=== PATIENT | female | born 1970 | race Caucasian/White ===

== ENCOUNTER 2016-10-26 05:46 | Day surgery (SDC) | payer MEDICAID, OTHER ==
[2016-10-26] VITALS (9 sets, daily range): BP systolic 104–129; BP diastolic 50–68; PULSE 75–88; RESP 11–16; O2SAT 93–98
[~2016-10-26] VITALS: Ht 165.1 cm; Wt 87.6 kg
[~2016-10-26 05:46] MED LIST: ONDA8TAB7 PO; PANT40TA3 PO; SERT100T PO; TRAZ-118 PO
[2016-10-26] MEDS ORDERED: fentaNYL-PF 50 mCg/mL 2 mL Inj ONE (05:47)
[2016-10-26] MEDS ORDERED: Ondansetron 2 mg/mL 2 mL Inj ONE (05:47)
[2016-10-26] MEDS ORDERED: Propofol 10,000 mCg/mL 20 mL Inj ONE (05:47)
[2016-10-26] MEDS ORDERED: MetoCLOpramide 5 mg/mL 2 mL Inj ONE (05:47)
[2016-10-26] MEDS ORDERED: Dexamethasone 4 mg/mL Inj ONE (05:47)
[2016-10-26] MEDS: Lactated Ringer's 1,000 ML IV SCH ×2 (05:56→07:19)
[2016-10-26] MEDS ORDERED: METF500T4 PO (05:58)
[2016-10-26] MEDS ORDERED: AMIT100T2 PO (05:58)
[2016-10-26] MEDS ORDERED: PREG75CA PO (05:58)
[2016-10-26] MEDS ORDERED: CeFAZolin Inj 2 GM in IV Premix 1 EACH IV ONE (06:00)
[2016-10-26] MEDS ORDERED: Lactated Ringer's 500 ML IV PRN (07:14)
[2016-10-26] MEDS ORDERED: Lactated Ringer's 1,000 ML IV SCH (07:14)
--- NOTE | 2016-10-26 07:14 | PCM.HPANE ---
Patient Data Surgeon Admitting Provider: Attending Provider:John Sims MD Primary Care Physician:Casey Mello MD Other Provider:[facility] Reason for Visit Ventral Incisional Hernia Ht/WT & BMI Height (Feet): 5 Height (Inches): 5 Weight (Kilograms): 87.6 Body Mass Index 32.00 Allergies Coded Allergies: hydrocodone (Verified Allergy, Unknown, hives, 10/25/16) Past Anesthesia History Anesthesia History: Denies:: Anesthesia Reactions Diabetes History Hx Diabetes?: Yes Type of Diabetes: Type II Glycemic Control: Diet Controlled Current Bedside Blood Glucose: 131 MRSA MRSA: No Medications Hypertension Medication: No Home Meds Incl Beta Cristy: No Reported Medications Amitriptyline 100 Mg [id number] Mg PO HS Ref 0 10/26/16 Metformin 500 Mg Vozofx707 Mg PO BID Ref 0 10/26/16 Pregabalin (Lyrica)75 Mg Oqjcryp49 Mg PO DAILY 30 Days Ref 0 10/26/16 Sertraline HCl (Zoloft)100 Mg Ztnsfu085 Mg PO DAILY 30 Days Ref 0 10/24/16 Discontinued Reported Medications Ondansetron ODT (Zofran ODT)8 Mg Tablet8 Mg PO Q4H PRN For Nausea 10/24/16 Trazodone 100 Mg Ucidon997 Mg PO HS Ref 0 10/24/[address] 40 Mg Tablet.dr40 Mg PO DAILY Ref 0 10/24/16 History Hx of Heart Problems?: No Cardiovascular History: Positive for:: Coronary Artery Disease (ELEVATED CHOLESTEROL) Denies:: Hypertension Hx of Respiratory Problem?: Yes Respiratory History: Positive for:: COPD Cough Denies:: Oxygen Administration Use of C-PAP Machine Hx Neurologic Problems?: Yes Neurological History: Positive for:: Headaches Other Neurological Pertinent: NEUROPATHY Gastrointestinal History: Positive for:: Gall Bladder Disease (rremoved) Gastroesphageal Reflux Heartburn Other GI Pertinent History: ventral hernia current admission problem Hx of Problems?: No Female Hx: Denies:: Currently Skin History: Positive for:: History Skin Disorders? (ECZEMA) Hx Musculoskeletal Problems?: Yes Musculoskeletal History: Positive for:: Fibromyalgia Hx of Psycho/Social Problems?: Yes Psycho Social History: Positive for:: Hx Depression Hx Surgeries?: Yes (lap colleen) Hx Any Other Health Problems?: Yes Other History: Denies:: Cancer Thyroid Disease Hx Diabetes: YesBedside Blood Glucose: 131 Hx Alcohol Use: NoHx Substance Use: No Smoking Status: Current Every Day Smoker Stop/Bang Treated for Sleep Apnea?: No Do You Have a CPAP Machine?: No S-Snoring: Do You Snore Loudly: Yes T-Tired: feel tired, fatigued: Yes O-Obsered: Observed not breath: No P-Blood Pressure: treated: No B- Body Mass Index > 35 kg/m2: No A- Age over 50: No N- Neck Large Circumference: No G- Gender Male: No RUTHANN Total Score: 2 RUTHANN Risk Assessment: Low Risk, <3 Yes Risk Assessment Category Category 1A: Patient has history of documented sleep apnea, and HAS NOT received any narcotic, sedative or anesthesia administration during this stay. Category 1B: Patient has history of documented sleep apnea, and HAS received any narcotic , sedative or anesthesia administration during this stay Category 2: Patient has SUSPECTED Obstructive Sleep Apnea, and HAS received any narcotic , sedative or anesthesia administration during this stay. Category 3: Patient has SUSPECTED Obstructive Sleep Apnea and HAS NOT received narcotic, sedative or anesthesia administration during this stay. Category 4: Outpatient in Procedural Areas with known sleep apnea or who screen positive for High Risk via the STOP/BANG questionnaire. Exam Exam Vital Signs Vital Signs Date Time Temp Pulse Resp B/P Pulse Ox O2 Delivery O2 Flow Rate FiO2 10/26/16 06:05 35.8 75 16 129/68 96 Room Air General Appearance: Oriented X3 HEENT/AIRWAY: MP 2 Lungs: Normal Air Movement Heart: Regular Rate/Rhythm Meds/Labs/Diagnostics Admission Meds Current Medications Lactated Ringer's (Lr) 1,000 ml @ 120 mls/hr Q8H20M IV Last administered on t 05:56; Start 10/26/16 at 05:00; Stop 10/26/16 at 13:19 Bedside Blood Glucose: 131 Plan Impression Patient chart reviewed, patient interviewed and anesthestic plan with risks, benefits, and alternatives discussed, and informed consent obtained. NPO Status: 10/25/16 ASA Physical Status: ASA2 Mod Systemic Disease Anesthetic Plan: GA Bene/Risks/Altern/Consents: Yes HP Complete Prior to Induction: Yes Mark Casillas MD Oct 26, 2016 07:14
[2016-10-26] MEDS ORDERED: fentaNYL-PF 50 mCg/mL 2 mL Inj IVPUSH PRN (07:15)
[2016-10-26] MEDS ORDERED: Phenylephrine 10,000 mCg/mL Inj IVPUSH PRN (07:15)
[2016-10-26] MEDS ORDERED: MetoCLOpramide 5 mg/mL 2 mL Inj IVPUSH PRN (07:15)
[2016-10-26] MEDS ORDERED: EPHEDrine Sulfate 50 mg/mL Inj IVPUSH PRN (07:15)
[2016-10-26] MEDS ORDERED: Ondansetron 2 mg/mL 2 mL Inj IVPUSH PRN (07:15)
[2016-10-26] MEDS ORDERED: Dexamethasone 4 mg/mL Inj IVPUSH PRN (07:15)
[2016-10-26] MEDS ORDERED: Bupivacaine 0.5%/EPI 50 mL Inj INFILTRATE ONE (07:41)
[2016-10-26] MEDS ORDERED: oxyCODONE-Acetamin 5-325 mg Tablet PO PRN (08:15)
--- NOTE | 2016-10-26 08:49 | OP ---
[address] [address] OPERATIVE REPORT PATIENT: GILDA BAUMAN : 1970 MR#: [id number] ADMIT: 10/26/2016 JOB ID: [id number] DATE OF SURGERY: 10/26/2016 ANESTHESIA: General. PREOPERATIVE DIAGNOSIS(ES): Ventral incisional hernia. POSTOPERATIVE DIAGNOSIS(ES): Ventral incisional hernia. OPERATION: Open repair of ventral incisional hernia using mesh. SURGEON: John Sims MD BREAD RACKER: Lee Jimenez PA-C (the tax assistant was required for the safe and timely completion of the case) as well as DEANGELO Montelongo. COMPLICATIONS: None. ESTIMATED BLOOD LOSS: None. CONDITION: Satisfactory. SPECIMEN: None. FINDINGS: At a 10 mm epigastric port site from a previous laparoscopic cholecystectomy, there was a hernia with a defect approximately 1.5 cm. This was repaired with a 4.3 cm Ventralex patch. INDICATIONS/SIGNIFICANT HISTORY: The patient is a 46-year-old female, who underwent a laparoscopic cholecystectomy two years ago. She has a history of COPD with a consequent cough. About a year ago, she noticed a bulge at the epigastric 10 mm port site. This had become progressively uncomfortable especially with coughing or lifting. She, therefore, sought to have this repaired. OPERATIVE TECHNIQUE: The patient was taken into the operating room and placed in the supine position. General anesthesia was administered and perioperative antibiotics were given. The abdomen was prepped and draped in a standard surgical fashion and a procedural pause was performed. I opened her old incision and extended it a couple millimeters on either side. This was a transverse incision. Dissection was carried down through the skin and subcutaneous tissue. The hernia sac was easily identified and circumferentially dissected free. The fascia was cleared anteriorly and posteriorly. A small Ventralex patch was then inserted in an underlay fashion. This was incorporated into a transverse closure with 0 Prolene sutures. Local anesthetic was injected. The skin was then closed using a 4-0 Monocryl. The entire procedure was well tolerated without complication.
--- NOTE | 2016-10-26 08:57 | PCM.ANEP1 ---
Post Anesthesia Phase 1 PACU Phase 1 Assessment Vital Signs Vital Signs Date Time Temp Pulse Resp B/P Pulse Ox O2 Delivery O2 Flow Rate FiO2 10/26/16 08:43 36.5 82 16 123/63 94 Room Air 10/26/16 08:35 81 11 117/68 96 Room Air 10/26/16 08:30 36.3 84 12 109/68 93 Room Air 10/26/16 08:25 86 15 110/62 93 Room Air 10/26/16 08:20 84 15 111/64 97 Room Air 10/26/16 08:15 84 14 104/50 98 Simple Mask 8 10/26/16 08:10 86 14 107/55 97 Simple Mask 8 10/26/16 08:08 36.9 88 14 109/59 96 Simple Mask 8 10/26/16 06:05 35.8 75 16 129/68 96 Room Air Level of Alertness: Awake, talking Pain: No Nausea or Vomiting: No Airway Device: Oralpharangeal Airway Oxygen Delivery: Room Air Lungs: Normal Air Movement Mark Casillas MD Oct 26, 2016 08:57
--- NOTE | 2016-10-26 08:57 | PCM.ANEP2 ---
Post Anesthesia Evaluation ASA/CMS Post Anesthesia VS in Patient's Normal Range?: Yes Resp Stable; Airway Patent?: Yes CV Function & Hydration Stable: Yes Mental Status Recovered?: Yes Pain control Satisfactory?: Yes N/V Control Satisfactory?: Yes Mark Casillas MD Oct 26, 2016 08:57
== END 2016-10-26 23:59 | disposition home or self-care (01) ==
LOC: SAS 05:46
PROVIDERS: ATTEND General Practice
DX: K43.2 Incisional hernia without obstruction or gangrene (principal); I10 Essential (primary) hypertension; J44.9 Chronic obstructive pulmonary disease, unspecified; E11.9 Type 2 diabetes mellitus without complications; M79.7 Fibromyalgia; F32.9 Major depressive disorder, single episode, unspecified; G47.33 Obstructive sleep apnea (adult) (pediatric); K21.9 Gastro-esophageal reflux disease without esophagitis; F17.210 Nicotine dependence, cigarettes, uncomplicated
CPT/HCPCS: 49560; 49568; C1781; J0690; J1100; J2405; J2765; J3010; J7120